=== PATIENT | male | born 1970 | race Caucasian/White ===

== ENCOUNTER 2023-11-01 11:01 | Day surgery (SDC) | payer BC ==
[2023-10-28 16:44] LABS: BASOPHILS # (AUTO) 0.1 X10'3 (0-0.2); BASOPHILS % (AUTO) 0.6 % (0-1); EOSINOPHILS # (AUTO) 0.1 X10'3 (0-0.9); EOSINOPHILS % (AUTO) 0.7 % (0-6); HEMATOCRIT 45.4 % (42.0-52.0); HEMOGLOBIN 15.4 g/dl (14.0-17.9); LYMPHOCYTES # (AUTO) 2.3 X10'3 (1.1-4.8); LYMPHOCYTES % (AUTO) 24.4 % (21-51); MEAN CORPUSCULAR HEMOGLOBIN 30.7 PG (27.0-31.0); MEAN CORPUSCULAR VOLUME 90.1 FL (78-98); MEAN PLATELET VOLUME 9.2 FL (7.4-10.4); MONOCYTES # (AUTO) 0.8 X10'3 (0-0.9); MONOCYTES % (AUTO) 8.9 % (2-12); NEUTROPHILS # (AUTO) 6.3 X10'3 (1.8-7.7); NEUTROPHILS % (AUTO) 65.4 % (42-75); PLATELET COUNT 233 X10'3 (140-440); RED BLOOD COUNT 5.03 X10'6 (4.70-6.10); RED CELL DISTRIBUTION WIDTH 13.2 % (11.5-14.5); WHITE BLOOD COUNT 9.6 X10'3 (4.5-11.0)
[2023-10-28 16:52] LABS: ALBUMIN 4.2 G/DL (3.4-5.0); ANION GAP 6 (8-16); BLOOD UREA NITROGEN 25 MG/DL (7-18); BUN/CREATININE RATIO 23.1 (10.0-20.0); CALCIUM 9.5 MG/DL (8.5-10.1); CHLORIDE 108 MMOL/L (99-107); CREATININE 1.08 MG/DL (0.60-1.10); GLUCOSE 94 MG/DL (70-104); POTASSIUM 4.6 MMOL/L (3.5-5.1); SODIUM 142 MMOL/L (135-145); eGFR 71 ML/MIN
[2023-10-28 16:55] LABS: APTT 30 SECONDS (22-32); INR 1.1 INR; PROTHROMBIN TIME 11.3 SECONDS (9.0-12.0)
[~2023-11-01] VITALS: Ht 190.5 cm; Wt 137.0 kg
[2023-11-01] VITALS (15 sets, daily range): BP systolic 109–162; BP diastolic 58–94; PULSE 15–62; RESP 12–16; TEMP 97; O2SAT 96–99
[~2023-11-01 11:01] MED LIST: ALLO100T PO; CLON-527 PO; HYDR-3965 PO; LISI20TA28 PO
[2023-11-01] MEDS ORDERED: normal saline 1000ml 1,000 ML IV SCH (11:30)
[2023-11-01] MEDS ORDERED: ALLO300T8 PO (11:31)
[2023-11-01] MEDS ORDERED: MULT-227 PO (11:31)
[2023-11-01] MEDS ORDERED: METO25TA6 PO (11:31)
[2023-11-01] MEDS ORDERED: AMI200T PO (11:31)
[2023-11-01] MEDS ORDERED: APIX5TAB3 PO (11:31)
[2023-11-01] MEDS ORDERED: FISH1CAP15 PO (11:31)
[2023-11-01] MEDS ORDERED: CLON0.5T2 PO (11:31)
[2023-11-01 12:17] LABS: CHOLESTEROL 187 MG/DL (0-200); HDL CHOLESTEROL 47 MG/DL (35-60); LDL CHOLESTEROL 124 MG/DL (50-100); TRIGLYCERIDES 87 MG/DL (20-135)
[2023-11-01] MEDS: MIDAZolam 1mg/ml 10ml vial IV ONE (14:22)
[2023-11-01] MEDS: fentaNYL/PF 50MCG/1 ML 2ML syringe IV ONE (14:22)
== END 2023-11-01 14:50 | disposition home or self-care (01) ==
LOC: SSTAY O 11:01
PROVIDERS: ATTEND Student in an Organized Health Care Education/Training Program
DX: I48.0 Paroxysmal atrial fibrillation (principal); I11.0 Hypertensive heart disease with heart failure; I50.22 Chronic systolic (congestive) heart failure; M10.9 Gout, unspecified; F17.291 Nicotine dependence, other tobacco product, in remission; Z79.01 Long term (current) use of anticoagulants; Z79.2 Long term (current) use of antibiotics; Z79.899 Other long term (current) drug therapy; Z88.8 Allergy status to other drugs, medicaments and biological substances
CPT/HCPCS: 36415; 80048; 80061; 85025; 85610; 85730; 92960; 93005; J2250; J3010; J7030

== ENCOUNTER 2025-04-16 13:51 | Emergency (ER) | payer BC ==
[~2025-04-16] VITALS: Ht 188 cm; Wt 140.0 kg
[~2025-04-16 13:51] MED LIST changes: -ALLO100T PO; +ALLO300T8 PO; +AMIO200T76 PO; +APIX5TAB3 PO; -CLON-527 PO; +CLON0.5T2 PO; +FISH1CAP15 PO; -HYDR-3965 PO; +METO25TA6 PO; +MULT-227 PO
[2025-04-16 15:25] LABS: MEAN PLATELET VOLUME 8.2 FL (7.4-10.4); RED CELL DISTRIBUTION WIDTH 16.0 % (11.5-14.5)
--- NOTE | 2025-04-16 15:36 | Physician Documentation ---
History of Present Illness ~ Chief Complaint: Overdose Stated Complaint: OVERDOSE Time Seen by MD: 14:59 Primary Medical Doctor: ayad CONDON 54-year-old male with history of AFib on Eliquis, gout, chronic pain presents to the ED after overdosing on pain pills. This morning at around 10:30 a.m. took 3-4 [place] 10 mg tablets, he says that he does not know why and "just took them", Jude". He states that he was taking pain medication hydrocodone 10 mg in the past for chronic back pain which started after he fell off a ladder years ago. Initially he was using pain medications that were prescribed by his doctor, held for the last couple of months he has been getting pain medications off the street from some person and states that they are "legitimate pain pills". Given 4 mg Narcan x3 by EMS, he is currently awake alert and oriented and in no acute distress. Not sure about the composition of the medication/pills. He does not have any other associated symptoms like nausea, vomiting, diarrhea, constipation, urinary symptoms, chest pain, dizziness headaches or shortness of breath. He had used Suboxone in the past, has not been using it since more than a month now. He also drinks alcohol daily, around 12 pack beers/day, last drink was this morning. No symptoms of withdrawal noted. Timing of Ingestion: hours Duration of Symptoms: hours Ingestion: Reports: intentional [id number]?: no History Of: no pertinent history Came By: familyor friend Associated Symptoms: other (ETOH ABUSE) Medication Reconciliation Allergies: Coded Allergies: No Known Allergies (Unverified , 11/28/11) Scheduled Allopurinol (Allopurinol), 1 TAB PO DAILY, (Reported) Amiodarone Hcl (Cordarone), 2 TAB PO DAILY, (Reported) Apixaban (Eliquis), 1 TAB PO BID, (Reported) Chlordiazepoxide Hcl (Librium), 25 MG PO DIRECTED Fish Oil/Dha/Epa (Fish Oil 1,200 Mg Fish Oil), 1 CAP PO DAILY, (Reported) Lisinopril (Lisinopril), 1 TAB PO DAILY, (Reported) Metoprolol Tartrate (Metoprolol Tartrate), 1 TAB PO BID, (Reported) Multivitamins (Multiple Vitamin), 1 TAB PO DAILY, (Reported) Promethazine Hcl (Promethegan), 25 MG RC Q6H PRN N/V Scheduled PRN Clonazepam (Klonopin), 3 TAB PO Q12H PRN PRN for anxiety, (Reported) ONDANSETRON ODT 4mg tablet (Ondansetron Odt), 1 TAB PO Q6H PRN PRN for nausea/vomiting Past Medical History Past Medical History: Hypertension, Chronic Back Pain, Gout, Anxiety Past Surgical History: other Alcohol Use: Rarely Drug Use: none Review of Systems ROS Reviewed in full. All negative except for pertinent positive HPI. Physical Exam Vital Signs: Temperature: 98.6, Source: Oral, Heart Rate: 120, Respiratory Rat e: 18, BP: 128/83, Pulse Oximetry: 96, Weight: 140.000 Physical Exam General: Awake and Alert, no acute distress. HEENT: Conjunctiva pink, Sclera clear, Mucus Membranes moist. Brown discoloration noted around the mouth. Neck: Supple without masses and tenderness. Resp: Unlabored. Equal breath sounds bilaterally. Heart: Regular rhythm, normal S1 and S2, no rub, murmur or gallop. Abdomen: Soft and non tender no organomegaly. Normal bowel sounds x4 quadrant normoactive. No guarding or rigidity. Extremities: Normal ROM, no swelling, nontender. No cyanosis,clubbing or edema. MEDICAL RECORD RETRIEVAL SPECIALIST: No gross motor or sensory abnormalities. Skin: Warm and Dry. Progress Results/Orders Results/Orders Completed Orders - DIANE SHAW MD Chlordiazepoxide Capsule (Librium Capsul (04/16/25 17:50) Medications Received in ER Medications (Trade) Dose Ordered Sig/Blossom Route PRN Reason Start Time Stop Time Status Last Admin Dose Admin (Librium capsule) 50 mg ONCE ONCE PO 04/16/25 17:50 04/16/25 17:51 DC 04/16/25 17:57 50 MG Vital Signs 04/16/25 04/16/25 04/16/25 04/16/25 14:04 14:16 14:20 15:52 Temp 98.6 98.6 98.6 Pulse 107 120 96 Resp 26 25 18 18 B/P (MAP) 128/83 128/83 (98) 116/73 (87) Pulse Ox 92 96 95 04/16/25 04/16/25 17:31 17:57 Temp 98.6 Pulse 118 Resp 17 15 B/P (MAP) 115/66 (82) Pulse Ox 97 Laboratory Tests Test 04/16/25 15:15 04/16/25 15:42 White Blood Count 11.6 H Red Blood Count 5.12 Hemoglobin 15.9 Hematocrit 49.0 Mean Corpuscular Volume 95.7 Mean Corpuscular Hemoglobin 31.1 H Mean Corpuscular Hemoglobin Concent 32.5 L Red Cell Distribution Width 16.0 H Platelet Count 139 L Mean Platelet Volume 8.2 Neutrophils (%) (Auto) 81.2 H Lymphocytes (%) (Auto) 11.0 L Monocytes (%) (Auto) 7.3 Eosinophils (%) (Auto) 0.2 Basophils (%) (Auto) 0.3 Neutrophils # (Auto) 9.4 H Lymphocytes # (Auto) 1.3 Monocytes # (Auto) 0.8 Eosinophils # (Auto) 0.0 Basophils # (Auto) 0.0 CBC Comment Sodium Level 136 Potassium Level 4.0 Chloride Level 101 Carbon Dioxide Level 19.7 L Anion Gap 15 Blood Urea Nitrogen 19 H Creatinine 0.85 Estimated GFR/1.73 m2 > 90 BUN/Creatinine Ratio 22.4 H Glucose Level 117 H Calcium Level 7.9 L Total Bilirubin 0.3 Aspartate Amino Transf (AST/SGOT) 78 H Alanine Aminotransferase (ALT/SGPT) 121 H Alkaline Phosphatase 102 Total Protein 7.4 Albumin 3.8 Globulin 3.6 Albumin/Globulin Ratio 1.1 Chemistry Comments Acetaminophen Level < 2.0 L Ethyl Alcohol Level 239 H Urine Specimen Description Voided Urine Color Straw Urine Clarity Clear Urine pH 5.5 Urine Specific [place] 1.010 Urine Protein Trace Urine Glucose (UA) Negative Urine Ketones Negative Urine Occult Blood Trace-intact Urine Nitrite Negative Urine Bilirubin Negative Urine Urobilinogen 0.2 Urine Leukocyte Esterase Negative Urine RBC 0-2 Urine WBC 0-4 Urine Squamous Epithelial Cells Few Urine Bacteria None seen Urine Culture Indicated Not ind Volume Urine Centrifuged 10 ml Urine Comment Urine Opiates Screen Positive Urine Methadone Screen Negative Urine Fentanyl Screen Negative Urine Barbiturates Screen Negative Urine Phencyclidine Screen Negative Urine Amphetamines Screen Negative Urine Benzodiazepines Screen Negative Urine Cocaine Screen Negative Urine Cannabinoids Screen Negative Drug Screen Comment Medical Decision Making Additional information obtaine: family, other Findings Found to overdose on pain medications, was given 4 mg not on x3, currently AXO x4 Also has a alcohol use disorder 12 pack a day, not in withdrawal Differential Dx:Considerations: Include: Alcohol abuse, Drug Overdose- Intentional, Encephalopathy, Hallucinations Additional Comment The patient presents with an accidental overdose. His workup is unremarkable except for drug screen positive for opiates and significant alcohol level. He is observed for 3 hours with no further respiratory depression or other conc erning symptoms. I had a long discussion with him regarding his presentation. He denies that this was an intentional overdose. He does admit to drinking alcohol heavily over the past several weeks. He is interested in quitting alcohol. After shared decision-making conversation we will proceed with a Librium taper for the alcohol withdrawal. He will avoid all opiate use. He will be discharged home, lives with his . Return precautions given. Departure Time of Disposition: 16:57 Disposition: 01 HOME / SELF CARE / HOMELESS Impression: Primary Impression: Poisoning by opiate or related narcotic Additional Impression: Alcoholic intoxication Condition: Improved Discharge Instructions: Alcohol Withdrawal Syndrome, Opioid Overdose Referrals: NO PRIMARY CARE PROVIDER (PCP) Prescriptions Promethazine Hcl (Promethegan) 25 Mg Supp.rect 25 MG RC Q6H PRN N/V, #10 SUPP Prov: DIANE SHAW MD 04/16/25 ONDANSETRON ODT 4mg tablet (ONDANSETRON ODT) 4 Mg Tab.rapdis 1 TAB PO Q6H PRN PRN for nausea/vomiting for 5 Days, #20 TAB 0 Refills Prov: DIANE SHAW MD 04/16/25 Chlordiazepoxide Hcl (Librium) 25 Mg Capsule 25 MG PO DIRECTED, #18 CAP 0 Refills Take the following taper: Take 50 mg by mouth 4 times a day for 1 day, then Take 25 mg by mouth 4 times a day for 1 day, then Take 25 mg by mouth 3 times a day for 1 day, then Take 25 mg by mouth 2 times a day for 1 day, then Take 25 mg by mouth 1 time for 1 day, then stop. Prov: DIANE SHAW MD 04/16/25 Education Educated: Patient Educated regarding: diagnosis, treatment, need for follow up Signature Scribe Signature: NA Attestation: MD RAD Farmer ELIZABETH, RES Apr 16, 2025 15:36 DIANE SHAW MD Apr 16, 2025 17:02
[2025-04-16 15:38] LABS: CREATININE 0.85 MG/DL (0.60-1.10); ETHANOL 239 MG/DL (<10); TOTAL CARBON DIOXIDE 19.7 MMOL/L (24-32); eCRCL 114 ML/MIN; eGFR > 90 ML/MIN
[2025-04-16 16:06] LABS: LEUKOCYTE ESTERASE ,URINE NEGATIVE (Neg); NITRITES, URINE NEGATIVE (Neg); OCCULT BLOOD,URINE TRACE-INTACT (Neg)
[2025-04-16 16:15] LABS: UA COLLECTION TYPE VOIDED
[2025-04-16 16:17] LABS: SQUAMOUS EPITHELIAL CELL,UR FEW /LPF (FEW)
[2025-04-16 16:19] LABS: URINE AMPHETAMINE SCREEN NEGATIVE (Neg); URINE BARBITUATE SCREEN NEGATIVE (Neg); URINE BENZODIAZEPINES SCREEN NEGATIVE (Neg); URINE CANNABINOID SCREEN NEGATIVE (Neg); URINE COCAINE SCREEN NEGATIVE (Neg); URINE METHADONE SCREEN NEGATIVE (Neg); URINE OPIATE SCREEN POSITIVE (Neg); URINE PHENCYCLIDINE SCREEN NEGATIVE (Neg)
[2025-04-16] MEDS ORDERED: CHLO25CA10 PO (17:00)
[2025-04-16] MEDS ORDERED: PROM25SU9 RC (17:02)
[2025-04-16] MEDS ORDERED: ONDA-243 PO (17:02)
[2025-04-16 18:34] VITALS: BP 150/86; PULSE 110; RESP 21; TEMP 98.6; O2SAT 98
== END 2025-04-16 18:38 | disposition home or self-care (01) ==
LOC: ER 13:51
DX: T40.601A Poisoning by unspecified narcotics, accidental (unintentional), initial encounter (principal); F10.129 Alcohol abuse with intoxication, unspecified; I10 Essential (primary) hypertension; I48.91 Unspecified atrial fibrillation; G89.29 Other chronic pain; F41.9 Anxiety disorder, unspecified; Z79.01 Long term (current) use of anticoagulants; Z79.899 Other long term (current) drug therapy; Y90.7 Blood alcohol level of 200-239 mg/100 ml; Y93.89 Activity, other specified
CPT/HCPCS: 36415; 80053; 80305; 80320; 80329; 81001; 85025; 99285